=== PATIENT | female | born 2000 | race African-American/Black ===

== ENCOUNTER 2020-02-25 10:04 | Emergency (ER) | payer OTHER ==
[~2020-02-25] VITALS: Ht 149.9 cm; Wt 95.3 kg
[2020-02-25 10:59] LABS: URINE BILIRUBIN NEGATIVE (Negative); URINE BLOOD 3+ (Negative); URINE CLARITY CLEAR; URINE COLOR YELLOW; URINE GLUCOSE-RANDOM* NEGATIVE (Negative); URINE KETONES NEGATIVE (Negative); URINE LEUKOCYTES-REFLEX NEGATIVE (Negative); URINE NITRITE-REFLEX NEGATIVE (Negative); URINE PROTEIN (DIPSTICK) NEGATIVE (Negative); URINE SPECIFIC GRAVITY >= 1.030 (1.005-1.035)
[2020-02-25 11:07] LABS: SQUAMOUS 4-10 Moderate /LPF (0-3)
[2020-02-25 11:08] LABS: MUCUS 4-6 Moderate strn/LPF (None Seen)
[2020-02-25 11:10] LABS: CASTS None Seen /LPF (None Seen); URINE RBC 3-10 Few /HPF (0-2); URINE WBC-REFLEX 0-5 Rare /HPF (0-5)
[2020-02-25 11:11] LABS: CRYSTALS None Seen /LPF (None Seen)
[2020-02-25 13:37] LABS: ABSOLUTE NEUTROPHILS 4.4 thou/uL (1.4-8.2); BASOPHILS 0.9 % (0.0-2.0); EOSINOPHILS 2.9 % (0.0-3.0); HEMATOCRIT 30.6 % (37.0-47.0); LYMPHOCYTES 26.2 % (24.0-44.0); MCH 22.7 pg (26.0-34.0); MCHC 32.7 g/dL (28.0-37.0); MCV 69.2 fL (80.0-100.0); MONOCYTES 7.7 % (1.0-8.0); PLATELET COUNT 395 thou/uL (150-400); POLYS 62.3 % (36.0-66.0); RBC 4.42 mil/uL (4.20-5.00); RDW 17.5 % (10.5-14.5)
[2020-02-25 13:42] LABS: CALCIUM 8.4 mg/dL (8.5-10.1); CREATININE 0.9 mg/dL (0.6-1.0)
[2020-02-25 13:50] LABS: ALBUMIN 3.4 g/dL (3.4-5.0); TOTAL BILIRUBIN 0.2 mg/dL (0.2-1.0); TOTAL PROTEIN 8.2 g/dL (6.4-8.2)
[2020-02-25 13:57] LABS: PLATELET ESTIMATE NORMAL
[2020-02-25 13:58] LABS: ANISOCYTOSIS 1+; HYPOCHROMASIA 2+; MICROCYTES 2+
[2020-02-25 13:59] LABS: OVALOCYTES OCCASIONAL; POIKILOCYTOSIS SLIGHT
[2020-02-25] MEDS ORDERED: ONDANSETRON HCL4 M2 PO ×2 (14:02→14:13)
[2020-02-25] MEDS ORDERED: MOBIC7.5 MG PO ×2 (14:02→14:13)
[2020-02-25 14:19] VITALS: BP 120/74
== END 2020-02-25 14:20 | disposition home or self-care (01) ==
LOC: ER 10:04
PROVIDERS: Emergency Medicine; Physician Assistant
DX: N92.0 Excessive and frequent menstruation with regular cycle (principal); R11.2 Nausea with vomiting, unspecified